=== PATIENT | female | born 1990 | race Caucasian/White ===

== ENCOUNTER 2022-08-20 09:02 | Outpatient (CLI) | payer BC, SELFPAY ==
[2022-08-20 10:11] LABS: Cholesterol* 151 mg/dL (90-199); Glucose* 87 mg/dL (60-115); Triglycerides* 38 mg/dL (40-149)
[2022-08-20 10:12] LABS: HDL Cholesterol* 63 mg/dL (>=50); LDL Cholesterol Calculated 80 mg/dL (<100)
== END 2022-08-20 09:03 | disposition home or self-care (01) ==
PROVIDERS: Visit Provider Registered Nurse
DX: Z13.6 Encounter for screening for cardiovascular disorders (principal); Z13.1 Encounter for screening for diabetes mellitus
CPT/HCPCS: 80061; 82947

== ENCOUNTER 2023-06-01 08:06 | Outpatient (CLI) | payer BC, SELFPAY ==
--- NOTE | 2023-06-01 08:15 | CRLHL7_ITS ---
For Patients: As a result of the Cures Act, medical imaging exams and procedure reports are released immediately into your electronic medical record. You may view this report before your referring provider. If you have questions, please contact your health care provider. INDICATION: First trimester scan, establish dates. COMPARISON: None. TECHNIQUE: Real-time lopez-scale imaging of the pelvis was performed. FINDINGS: Sonographic imaging demonstrates a single living intrauterine gestation. The embryo demonstrates a regular cardiac rate measuring 171 beats per minute. The embryo`s crown-rump length measurement of 2.1 cm corresponds to a gestational age of 8 weeks 5 days with a sonographic due date of 01/05/2023. There is a normal-appearing yolk sac. There are no gross abnormalities noted within the embryo at this early state of development. The gestational sac has a normal appearance. There is no evidence of a perigestational hemorrhage. The amount of fluid within the sac appears appropriate for gestational age. The cervix is closed. The myometrium appears normal. The ovaries are of normal size. Corpus luteal cyst right ovary. Trace pelvic free fluid noted. IMPRESSION: Single living intrauterine with sonographic gestational age 8 weeks 5 days and sonographic due date 01/05/2023. Dictated by Kavin Monge MD @ 06/01/2023 9:38:18 AM (Electronically Signed)
== END 2023-06-01 08:07 | disposition home or self-care (01) ==
LOC: US 08:06
PROVIDERS: Visit Provider Registered Nurse
DX: Z34.91 Encounter for supervision of normal pregnancy, unspecified, first trimester (principal); Z3A.08 8 weeks gestation of pregnancy
CPT/HCPCS: 76817; 86592; 86703; 86704; 86706; 86762; 86787; 86803; 86850; 86900; 86901; 87086; 87340; 87491; 87591

== ENCOUNTER 2023-06-01 09:16 | Outpatient (CLI) | payer BC, SELFPAY ==
[2023-06-01 17:35] LABS: Chlamydia DNA Amplified* NOT DETECTED (No Detected); GC DNA Amplified* NOT DETECTED (No Detected)
== END 2023-06-01 09:17 | disposition home or self-care (01) ==
PROVIDERS: Visit Provider Registered Nurse
DX: Z34.91 Encounter for supervision of normal pregnancy, unspecified, first trimester (principal); Z3A.08 8 weeks gestation of pregnancy
CPT/HCPCS: 86592; 86703; 86704; 86706; 86762; 86787; 86803; 86850; 86900; 86901; 87086; 87340; 87491; 87591

== ENCOUNTER 2023-08-24 08:37 | Outpatient (CLI) | payer BC, SELFPAY ==
--- NOTE | 2023-08-24 08:45 | CRLHL7_ITS ---
For Patients: As a result of the 21st Century Cures Act, medical imaging exams and procedure reports are released immediately into your electronic medical record. You may view this report before your referring provider. If you have questions, please contact your health care provider. OB ULTRASOUND INDICATION: anatomy scan. LMP: 04/01/2023. ELVIRA by LMP: 01/06/2024. GA: 20 w, 5 d. COMPARISON: 06/01/2023. FINDINGS: position: Vertex. Cervix: Visualized. Technique: Transabdominal. Length of closed cervix: 3.9 cm. Placenta/cord: Anterior. Technique: Transabdominal. Placenta tip to internal OS: 7.0 cm. Umbilical Cord: 3-vessel cord. Placenta insertion: Eccentric (2.7 cm from edge). Amniotic Fluid: 4.6 cm SDP SURVEY: Observed Structures Calvarium/Spine: Cerebellum: 2.1 cm, 21 w 0 d. Cisterna Magna: 2.1 mm. Nuchal Fold: 3.3 mm. Lateral Ventricle: 4.1 mm. CSP: Yes. Midline Falx: Yes. Choroid Plexus: Yes. Spine: Yes. Abdomen: Stomach: Yes. Abd Cord Insertion: Yes. Urinary Bladder: Yes. Kidneys: Yes. Diaphragm: Yes. Face: Nose/lips: Yes. Orbital view: Yes. Profile: Yes. Limbs: Upper Extremities: Yes. Lower Extremities: Yes. Hands: Yes. Feet: Yes. Vascular: Four-Chamber Heart: Yes. LVOT: Yes. RVOT: Yes. 3VV: Yes. 3VTV: Yes. BPD: 4.8 cm. 20 w 3 d, 34 percent. HC: 17.6 cm. 20 w 0 d, 15 percent. AC: 15.8 cm. 21 w 0 d, 51 percent. FL: 3.6 cm. 21 w 3 d, 66 percent. FL/AC: 22.78 percent. HC/AC Ratio: 1.11. Heart rate: 154 beats per minute. age by this US: 20 w 5 d. ELVIRA by this US: 01/06/2024. EFW: 393.06 g. Weight: 14 oz. Percentile by ELVIRA: 62 percent. IMPRESSION: 1. Measurements are consistent with dates. Good interval growth since the prior exam. 2. Normal anatomic survey. Duncan Pascual M.D. Body/Diagnostic Radiologist [email or web address] SP/Dictated by: Duncan Pascual MD @ 08/24/2023 11:42:00 AM (Electronically Signed)
== END 2023-08-24 08:38 | disposition home or self-care (01) ==
LOC: US 08:38
PROVIDERS: Visit Provider Advanced Practice Midwife
DX: Z34.92 Encounter for supervision of normal pregnancy, unspecified, second trimester (principal); Z3A.20 20 weeks gestation of pregnancy
CPT/HCPCS: 76805

== ENCOUNTER 2023-10-19 08:48 | Outpatient (CLI) | payer BC, SELFPAY | END 2023-10-19 08:49 | disposition home or self-care (01) | LOC: NFLDREF 10-21 06:04 | PROVIDERS: PCP Advanced Practice Midwife; Visit Provider Advanced Practice Midwife | DX: Z34.92 Encounter for supervision of normal pregnancy, unspecified, second trimester (principal) | CPT/HCPCS: 86592 ==

== ENCOUNTER 2023-12-14 08:56 | Outpatient (CLI) | payer BC, SELFPAY ==
[2023-12-15 14:15] LABS: Strep B DNA Probe Negative (Negative)
[2023-12-15 14:36] LABS: Strep B Susceptibility Needed? No
== END 2023-12-14 08:57 | disposition home or self-care (01) ==
LOC: NFLDREF 08:56
PROVIDERS: Visit Provider Advanced Practice Midwife
DX: Z34.03 Encounter for supervision of normal first pregnancy, third trimester (principal)
CPT/HCPCS: 87081; 87653

== ENCOUNTER 2024-01-12 21:13 | Inpatient (IN) | payer BC, SELFPAY ==
[2024-01-12] VITALS (27 sets, daily range): BP systolic 88–141; BP diastolic 54–87; PULSE 53–102; TEMP 36.5–36.6; O2SAT 92–100; BMI 28.9
--- NOTE | 2024-01-12 21:43 | P.LDBA_ITS ---
Subjective History of Present Illness Date Seen: 01/12/24 Narrative: Farhana is being admitted to Labor and Delivery for labor. She is a 33 year old at 40.6 weeks gestation. Her full history and physical was dictated by Toya Santa CNM on 12/21/23. Please see this for details. She has been lars most of the day and at about 1700 they became stronger and she called to speak with the birthing unit to discuss her symptoms. On arrival she is lars regularly and considering asking for pain medications or an epidural. At this time she is planning to try water therapy in the bathroom tub. Specific Issues/Plans G 1 P 0 H&P 12/21/23 by Toya Santa CNM : Henrique 1. Increased vascularity where placenta attaches to uterus per tech report. Not noted in radiology report. Flu: recommended. Declined Covid: Completed and boosted x2. Not current with booster. Recommended. Declines today. TDAP: 11/03/23 OB - Problem Based A/P Additional Plan (1) 40 weeks gestation of : Status: Acute (2) Distress from pain in labor: Status: Acute Plan Assessment:?? at 40.6 weeks gestation?? GBS negative? Patient is coping well with challenges of labor.?? Labor type: Spontaneous, Early labor? Category 1 FHR pattern.? complicated by: No OB problems. Plan:?? * ?Admit to L & D? * IV access: SL * Monitoring per policy: intermittent? * Candidate for analgesia of choice.? Planning to try water therapy for pain management, considering epidural * Expectant management at this time ? * Patient encouraged to reposition and ambulate to promote physiologic labor and . * Patient desires waterbirth as option undecided it she will use. Consent signed Hep C neg. * Anticipate ? Delivery/Labor/Induction Plan Plan: expectant management OB Exam Physical Exam Vital signs: Pulse BP Pulse Ox 59 L 132/85 92 01/12/24 20:48 01/12/24 20:48 01/12/24 21:04 Narrative: Vitals Reviewed Constitutional:? Alert and oriented x3 HEENT:? Normocephalic, atraumatic Neck:? Supple Lungs:? Clear to auscultation bilaterally Heart:? Regular rate and rhythm, no murmur, rub or gallop Abdomen:? Soft, nontender, and gravid. Vertex by Andrei's, confirmed with cervical exam. Extremities:? No edema or erythema Cervix: 3 cm/90%/-1 station/vertex per RN NST: 145 bpm/moderate variability/+accelerations/-decelerations/moderate contractions Detailed Labor and Delivery Exam Patient Gravid: Yes
[2024-01-12 22:15] LABS: Basophils Percent Auto 0.2 % (0.0-3.0); Eosinophils Percent Auto 0.7 % (0.0-7.0); Hematocrit 42.8 % (33.0-51.0); Hemoglobin* 14.7 gm/dL (12.0-16.0); Immature Granulocytes Pct Auto 0.3 %; Lymphocytes Percent Auto 11.8 % (20-44); Mean Corpuscular HGB Conc 34 gm/dL (32-36); Mean Corpuscular Hemoglobin 30 pg (26-34); Mean Corpuscular Volume 89 fL (80-100); Monocytes Percent Auto 5.5 % (0.0-11.0); Neutrophils Percent Auto 81.5 % (42.0-72.0); Platelet Count* 125 K/uL (140-440); RDW Coefficient of Variation % 11.8 % (11.5-15.5); Red Blood Count 4.83 m/uL (4.00-5.20); White Blood Count* 15.97 K/uL (4.50-11.00)
[2024-01-12] MEDS: LACTATED RINGERS 1000 ML 1,000 ML IV ×2 (22:21→23:15)
[2024-01-12 22:28] LABS: Slide Review Reflex No
[2024-01-12] MEDS: LIDOCAINE 2% (PF) 5 ML VIAL EPIDURAL (23:13)
[2024-01-12] MEDS: ROPIVACAINE 0.2% 100 ml 100 ML 12 MG EPIDURAL (23:15)
--- NOTE | 2024-01-12 23:27 | PM.ANBPRC ---
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 Lives in [place]. What is your current living situation?: I presently have a place to live Problems where you live: no known problems In the past 12 months, utilities in danger of being shut off: no In past 12 months, lack of transportation kept you from medical appts, meetings, work, or getting things needed for daily living: no In the past 12 mos, have been you worried that your food would run out before you had money to buy more?: never true In the past 12 mos, the food you bought just didn't last and you didn't have money to buy more?: never true Smoking Status: Never smoker How often does anyone, including family, friends and others, physically hurt you: never How often does anyone, including family, friends and others, insult or talk down to you: never How often does anyone, including family, friends and others, threaten you with harm: never How often does anyone, including family, friends and others, scream or curse at you: never Little interest or pleasure in doing things: not at all Feeling down, depressed, or hopeless: not at all Meds Home Medications and Allergies Home Medications ?Medication ?Instructions ?Recorded ?Confirmed ?Type loratadine 10 mg tablet (Claritin) 10 mg PO QDAY PRN 08/20/22 01/12/24 History acetaminophen 500 mg tablet 1,000 mg PO Q6H PRN 06/01/23 01/10/24 History (Tylenol Extra Strength) docosahexaenoic acid 200 mg mg PO 06/01/23 01/10/24 History capsule ( DHA) Allergies Allergy/AdvReac Type Severity Reaction Status Date / Time cats Allergy Intermediate itchy Uncoded 01/10/24 08:15 eyes, sneezing, SOB, mucous molds/dust Allergy Mild sneezing, Uncoded 01/10/24 08:15 runny nose dogs Allergy itchy Uncoded 01/10/24 08:15 eyes, SOB, sneezing, mucous Results Labs Labs: Laboratory Results - last 24 hr 01/12/24 21:43 WBC 15.97 H RBC 4.83 Hgb 14.7 Hct 42.8 MCV 89 MCH 30 MCHC 34 RDW Coeff of Den 11.8 Plt Count 125 L Neut % (Auto) 81.5 H Lymph % (Auto) 11.8 L Gillespie % (Auto) 5.5 Eos % (Auto) 0.7 Baso % (Auto) 0.2 Neut # (Auto) 13.00 H Lymph # (Auto) 1.90 Gillespie # (Auto) 0.90 Eos # (Auto) 0.10 Baso # (Auto) 0.00 Abs Immat Gran (auto) 0.00 Imm/Tot Granulo (auto) 0.3 Vital Signs Vital Signs: Last Vital Signs Temp 98 F 01/12/24 20:48 Pulse 96 01/12/24 23:25 BP 99/54 L 01/12/24 23:25 Pulse Ox 100 01/12/24 23:25 Weight: 78.9 kg Height: 165.1 cm Anesthesia Procedures Epidural Insertion Patient Location: OB Start Time: 22:50 Stop Time: 23:50 Start Date: 01/12/24 Stop Date: 01/12/24 Reason for Block: procedure for pain Patient Position: sitting Performed By: Mae Mirza Preanesthetic Checklist: IV checked, risks and benefits discussed, monitors and equipment checked, pre-op evaluation, timeout performed and anesthesia consent Prep: chlorhexidine gluconate Monitoring: blood pressure monitoring, continuous pulse oximetry and heart rate Approach: midline Vertebral Space: lumbar (1-5) Epidural Technique: STEPHEN saline Needle Type: Tuohy needle Injection Technique: continuous catheter (continuous catheter) Needle gauge: 17 Needle Length (cm): 10 cm Needle Insertion Depth (cm): 6 Catheter Gauge: 19 Catheter Type: multi-orifice Catheter at skin depth (cm): 15 Test Dose Result: negative and lidocaine 1.5% with epinephrine 1 to 200,000
[2024-01-12] MEDS: PHENYLEPHRINE 100 MCG/ML SYRINGE IVP ×2 (23:32→23:49)
[2024-01-13] VITALS (42 sets, daily range): BP systolic 99–140; BP diastolic 55–92; PULSE 53–127; RESP 16–18; TEMP 36.5–36.9; O2SAT 97–100
--- NOTE | 2024-01-13 00:30 | PM.OBPNL ---
Subjective Date Seen: 01/13/24 Narrative: ?Farhana is coping well with labor pain/contractions now with an epidural in place. ?Henrique is with her for support. ?She is comfortable and denies feeling any contractions now. Objective Exam: VSS, afebrile General Appearance:? Calm, cooperative. ?No acute distress. ? Psychiatric Exam: Alert and oriented, appropriate affect Abdomen: Gravid Ctx: ?Q 2-3 min apart. ? ?Moderate ? FHTs: ?Baseline: 135. ? ? Variability: moderate. ?Accels: +. ? ?Decels: ?-. SVE: 3/100/-1 Membranes: Intact ? Vital Signs: Last Vital Signs Temp 97.7 F 01/12/24 23:34 Pulse 69 01/13/24 00:24 BP 113/68 01/13/24 00:24 Pulse Ox 100 01/12/24 23:25 Plan Plan: Assessment:?? at 40.6 weeks gestation?? GBS neg Patient is coping well with challenges of labor.?? Labor type: Spontaneous, Early labor? Category 1 FHR pattern.? complicated by: No OB problems Plan:?? Expectant management at this time. Continue with routine intrapartum cares as ordered.?? Patient encouraged to move and change positions to promote physiologic labor and .?? Epidural infusing per anesthesia orders. Anticipate progress to NVD. ?
--- NOTE | 2024-01-13 03:50 | P.OBPN_ITS ---
Subjective Date Seen: 01/13/24 Narrative: ?Misti is coping well with labor pain/contractions. ?Henrique is with her for support. ?She would like to continue with her epidural for comfort and pain management.?She is feeling more pressure with contractions and nursing has noted some bloody show. Objective Exam: VSS, afebrile General Appearance:? Calm, cooperative. ?No acute distress. ? Psychiatric Exam: Alert and oriented, appropriate affect Abdomen: Gravid Ctx: ?Q 3-4 min apart. ? ? ?Strong FHTs: ?Baseline: 135. ? ? Variability: moderate. ?Accels: +. ? ?Decels: ?early. SVE: 9/100/-1 Membranes: ?AROM meconium stained Vital Signs: Last Vital Signs Temp 98.1 F 01/13/24 02:37 Pulse 92 01/13/24 03:26 BP 113/63 01/13/24 03:26 Pulse Ox 100 01/12/24 23:25 Assessment Assessment: active labor Station: -1 Amniotic Membrane Status: AROM Status: Category l [facility] Variability: Moderate (6-25) Plan Plan: Assessment:?? at 40.6 gestation?? GBS neg Patient is coping well with challenges of labor.?? Labor type: Spontaneous, Active labor? Category 1 FHR pattern.? complicated by: No OB problems Labor complicated by: Meconium stained fluid? Plan:?? Peds to attend for MSF Continue with routine intrapartum cares as ordered.?? Patient encouraged to move and change positions to promote physiologic labor and .?? Continue epidural for pain control per anesthesia orders Anticipate progress to NVD. ?
[2024-01-13] MEDS: OXYTOCIN 30 unit/500 ML in NS 30 UNIT/500 ML BAG 325 UNIT IVPB (06:22)
[2024-01-13] MEDS: miSOPROStoL 800 MCG/4 TABLET PR (06:25)
[2024-01-13] MEDS: LIDOCAINE 1 % PF 30 ML INJECTION (06:35)
--- NOTE | 2024-01-13 07:38 | W.PM.VAGDE_ITS ---
OB Procedure Vag Delivery Mother Details Mother Details: The patient is a 33 year-old, 1, Para 0, admitted on 01/12/24 at 40.6 Days gestation. : 1 Para: 1 Weeks Gestation: 41.0 Admission Date: 01/12/24 Additional Details Amniotic Membrane Status: AROM Amniotic Membrane Rupture Date: 01/13/24 Amniotic Membrane Rupture Time: 03:41 Amniotic Membrane Fluid Description: Meconium Stained and Brown Analgesia/Anesthesia Type: Epidural Waterbirth: No Pitcoin: Yes (for AMTSL) Intrapartal Events: None Labor Onset: 20:41 Complete: 05:16 Pushin:16 Heart: heart tones during second stage were continuously monitored. Category 2 moderate variability with variables. Delivery Details Delivery Date: 01/13/24 Delivery Time: 06:08 Route of delivery: Gender: Female Viability: Alive; Heart Rate Present Position at Delivery: OA Delivery Details: 33?y.o G1 now P1?at 41.0 weeks.? Misti labored at home most of the day and on arrival had made cervical change, she was 3/90/-1 on admission. She labored and progressed normally with an epidural for pain management. ? She became complete at 0516.??She pushed in right tilt and low fowlers positions effectively.? Spontaneous vaginal delivery at 0608 of?a viable? female infant.??Delivered in vertex OA position.??Shoulders delivered easily.?There cord was wrapped around the ankle, and the cord was short. Spontaneous cry noted.?? placed low on maternal abdomen.??Cord?was clamped and cut after a 5+ minute delay.??Nose and mouth were bulb suctioned.???There was a large amount of fluid behind the baby, 1000ml in the collection bag. ? Shoulder dystocia: no? Nuchal cord: no? Meconium stained?fluid: yes? Water : no? ? ? 8 at 1 minute and 9 at 5 minutes.? Weight is pending. ? Placenta delivered spontaneously and?complete?at 0618 with a?3 vessel?cord.?? Bleeding controlled with fundal massage,?pitocin?and Cytotec for AMTSL.? ? Mother and were stable after delivery.? ? Lacerations:? Deep 2nd degree,and Left labial laceration repaired with 3- 0?vicryl.? ? Bleeding?post delivery?was: moderate . ?The fundus was firm to palpation.? Blood loss: 300?mL.? Blood loss measurement type: QBL? ? ? Sponge,?lap?and needles counts are correct.? Mother and infant were stable after delivery.? 1 Minute Interval Total Score: 8 5 Minute Interval Total Score: 9 Additional Details Shoulder Dystocia: No Placenta Delivery Time: 06:18 Placental Delivery Description: Spontaneous Delivery repair: Vicryl Procedure Done: Global Blood Loss: 300 Laceration: Perineal - 2nd Degree (and left labial) Blood Loss Measurement Type: QBL Bakri Used: No Sponge/Need Count Correct: Yes Cord Vessel Description: 3 Vessels and Around Extremity (right ankle) Event Summary Status: Mother and were stable after delivery. Disposition: floor
[2024-01-13] MEDS: IBUPROFEN 600 MG TABLET PO (08:43)
[2024-01-13] MEDS: DOCUSATE SODIUM 100 MG CAPSULE PO (08:43)
[2024-01-13 09:05] LABS: Hematocrit 37.7 % (33.0-51.0); Hemoglobin* 12.6 gm/dL (12.0-16.0); Mean Corpuscular HGB Conc 33 gm/dL (32-36); Mean Corpuscular Hemoglobin 30 pg (26-34); Mean Corpuscular Volume 90 fL (80-100); Platelet Count* 133 K/uL (140-440); Red Blood Count 4.17 m/uL (4.00-5.20); White Blood Count* 20.97 K/uL (4.50-11.00)
[2024-01-13 09:11] LABS: Slide Review Reflex No
[2024-01-13 09:20] LABS: Alanine Aminotransferase* 49 U/L (4-35); Aspartate Amino Transferase* 35 U/L (12-35); Blood Urea Nitrogen* 10 mg/dL (5-24); Creatinine* 0.8 mg/dL (0.5-1.5); Est. Creatinine Clearance* 90.84; Estimated Glomerular Filt Rate 100 ml/min
--- NOTE | 2024-01-13 10:06 | PM.ANPOST ---
Post Anesthesia Note Post Anesthesia Note Patient seen: Inpatient Respiratory Status: adequate Cardiovascular Status: adequate Mental Status: baseline Pain: adequate Temp: baseline Anesthetic awareness: no Complications: none Follow care: none
[2024-01-14 00:15] VITALS: BP 117/75; PULSE 64; RESP 16; TEMP 37.1; O2SAT 97
[2024-01-14 03:09] VITALS: BP 119/85; PULSE 64; RESP 16; TEMP 36.4; O2SAT 97
[2024-01-14] MEDS: ACETAMINOPHEN 500 MG TABLET 1000 MG PO (07:16)
[2024-01-14 07:53] VITALS: BP 125/87; PULSE 66; RESP 18; TEMP 36.6; O2SAT 97
[2024-01-14] MEDS: DOCUSATE SODIUM 100 MG CAPSULE PO (07:55)
--- NOTE | 2024-01-14 08:57 | PM.OBPNVD1 ---
OB - PN:Subj Subjective Date Seen: 01/14/24 Patient comments OB post-: no complaints, pain well controlled, tolerating diet and flatus present [place] status: and doing well [place] feeding status: exclusively Narrative: Farhana feels well.? Her pain is well controlled with current medications.? She has no new complaints.? Urinary output is adequate and she is voiding without difficulty.? Has a good appetite, is tolerating a general diet, is passing flatus, and has not had a bowel movement.? Has small amount of rubra lochia.? She is ambulating well.?She is but baby is struggling with latching and has not had a good latch yet. She is hand expressing and spoon feeding. She is interested in going home today but I encouraged her to consider staying tonight to get extra assistance. She is considering and will decide this evening. ALT was elevated but blood pressures have remained normotensive since labs were drawn. Will continue to monitor blood pressures. OB - PN: Obj Exam Physical Exam: Vital signs: Temp Pulse Resp BP Pulse Ox O2 Del Method 97.8 F 66 18 125/87 97 Room Air 01/14/24 07:53 01/14/24 07:53 01/14/24 07:53 01/14/24 07:53 01/14/24 07:53 01/14/24 07:53 Narrative: GENERAL APPEARANCE:? normal affect, alert, no distress? MOOD:? appropriate? CHEST:? clear to auscultation and percussion? HEART:? regular rate and rhythm? ABDOMEN:? soft, non-tender the uterine fundus is U/2 and is appropriate for the stage of recovery.? PERINEUM:? mild edema of the perineum, there is a 2nd degree laceration that is healing well.? EXTREMITIES:? normal and no edema? OB - PN: Obj Data Labs Labs: Laboratory Results - last 24 hr 01/13/24 08:59 WBC 20.97 H RBC 4.17 Hgb 12.6 Hct 37.7 MCV 90 MCH 30 MCHC 33 Plt Count 133 L BUN 10 Creatinine 0.8 Estimated Creat Clear 90.84 Estimated GFR 100 AST 35 ALT 49 H OB - PN: A/P Delivery Assessment and Plan (1) Lactating mother: Status: Acute (2) care following vaginal delivery: Status: Acute Plan day: 1 Plan: routine care Comments: Monitor blood pressures. Consider repeat labs if elevated. Anticipate discharge home this evening of tomorrow morning per patient preferance.
[2024-01-14 16:30] VITALS: BP 125/80; PULSE 73; RESP 15; TEMP 36.5; O2SAT 97
[2024-01-14 22:26] LABS: Rapid Plasma Reagin (RPR) Non Reactive (Non Reactive)
[2024-01-15 01:00] VITALS: BP 113/75; PULSE 73; RESP 16; TEMP 36.8
--- NOTE | 2024-01-15 07:47 | PM.OBDSVD1 ---
DS: Providers Provider Date Seen: 01/15/24 Date of admission: 01/12/24 21:13 Primary care physician: Not a Local Provider Admitting Clinician: Miguelina Abdalla CNM Attending Physician on discharge: Miguelina Abdalla CNM Date of Discharge: 01/15/24 DS: Diagnosis Discharge Diagnosis (1) care following vaginal delivery: Status: Acute (2) Lactating mother: Status: Acute (3) Preeclampsia: Status: Acute Exam Narrative: Exam Narrative: GENERAL APPEARANCE:? normal affect, alert, no distress? MOOD:? appropriate? CHEST:? clear to auscultation and percussion? HEART:? regular rate and rhythm? ABDOMEN:? soft, non-tender the uterine fundus is U/2 and is appropriate for the stage of recovery.? PERINEUM:? mild edema of the perineum, there is a 2nd degree laceration that is healing well.? EXTREMITIES:? normal and no edema? Const: Vital Signs, click to edit/add: Vital Signs - 24 hr 01/14/24 07:53 01/14/24 16:30 01/15/24 01:00 Temperature 97.8 F 97.7 F 98.3 F Pulse Rate [Pulse Oximeter] 66 73 73 Respiratory Rate 18 15 16 Blood Pressure [Ri ght Arm] 125/87 125/80 113/75 Pulse Oximetry 97 97 Oxygen Delivery Me thod Room Air Room Air Room Air Documenting provider has reviewed patient's vital signs: yes OB - DS: Summary Hospital Course Hospital Course: Farhana is a 33 year old G 1 P 1 at 41.0 weeks gestation that was admitted to the Center on 01/12/24 for active labor. She had an uncomplicated vaginal delivery. She delivered a viable female . She is breast feeding which is going much better overnight and today. the patient has done well. Her pain is well controlled with current medications.? She has no new complaints.? Urinary output is adequate and she is voiding without difficulty.? Has a good appetite, is tolerating a general diet, is passing flatus, and has had a small bowel movement.? Has scant amount of rubra lochia.? She is ambulating well. Her blood pressures are slightly elevated for what she was in and an elevated ALT so will repeat labs before discharge. She declines an prescription for ibuprofen going home as she has not taken any pain medications since yesterday morning. Encouraged her to take OTC medications PRN. She is unsure what she is planning for contraception but is thinking NFP. Peripartum Data Infant delivery method: Vaginal Laceration description: Perineal - 2nd Degree Episiotomy description: None complications: none [place] Infant Gender: Female Infant Discharge Plan: Home Status at Discharge Functional status at discharge: independent ambulation Overall status at discharge: patient is progressing back to baseline Time Spent with Patient Time attestation: Total time spent providing and/or coordinating discharge services: Discharge Plan Discharge Disposition: Home, Self-Care Date of Admission: 01/12/24 21:13 Primary Care Provider: Provider,Not a Local Condition: Stable Anticipated Discharge Date/Time: 01/15/24 10:00 Discharge Medications: New docusate sodium 100 mg Capsule 100 mg PO DAILY Qty: 60 0RF Rx Instructions: Take 1-2 tablets daily as needed for constipation. Continued loratadine [Claritin] 10 mg tablet 10 mg PO QDAY PRN DHA 200 mg capsule 200 mg PO DAILY acetaminophen [Tylenol Extra Strength] 500 mg tablet 1,000 mg PO Q6H PRN No Action (DME) breast pump Device See Rx Instructions .Route Qty: 1 0RF Rx Instructions: As directed Discharge Orders: Discharge Order (Routine); Ordered 01/15/24 Ordered By: Olesya Santa Patient Education: OB Vaginal/Breast Feeding Additional Instructions: Discharge instructions were reviewed with the patient including signs and symptoms of infection and home going medications.? Lifting Restrictions: 20 pounds for 6? weeks? ?? Do not drive while taking narcotic pain meds.? Off Work or School for 6 weeks.? ?? Symptoms to report to doctor:? -Bleeding that saturates more than one pad per hour? -Passing clots larger than the size of a golf ball? -Pain not relieved by prescribed medication? -Fever above 100.4 degrees Fahrenheit? -A foul vaginal odor? -Difficulty in emotions, mood and functions? -Thoughts of hurting yourself and/or ? -Painful, reddened area in your breast? -Any drainage, redness or tenderness in your IV/epidural site? -Severe headache that doesn't improve after taking medications? -Changes in vision, including temporary loss of vision, blurred vision, and/or light sensitivity? -Upper abdominal pain (usually under ribs on the right side)? -Decrease in urination or painful, frequent urinating? -Chest pain? -Shortness of breath? -Tenderness or pain with redness and/swelling in the calf(s) of your leg? ?? Follow Up in clinic in 2 and 6 weeks.? ?? consultation services are available to all mothers and babies for the first year after delivery.? To make an appointment, please call [phone].? Activity Level: Activity as Tolerated Discharge Diet: Regular Follow Up Appointments: [facility] [Provider Group] Forms: MyHealth Info Instructions
[2024-01-15 07:51] VITALS: BP 126/88; PULSE 57; RESP 16; O2SAT 97
[2024-01-15 08:22] LABS: Hematocrit 36.3 % (33.0-51.0); Hemoglobin* 11.9 gm/dL (12.0-16.0); Mean Corpuscular HGB Conc 33 gm/dL (32-36); Mean Corpuscular Hemoglobin 30 pg (26-34); Mean Corpuscular Volume 93 fL (80-100); Platelet Count* 143 K/uL (140-440); Red Blood Count 3.91 m/uL (4.00-5.20); White Blood Count* 10.27 K/uL (4.50-11.00)
[2024-01-15 08:27] LABS: Slide Review Reflex No
[2024-01-15 08:39] LABS: Alanine Aminotransferase* 21 U/L (4-35); Aspartate Amino Transferase* 39 U/L (12-35); Blood Urea Nitrogen* 9 mg/dL (5-24); Creatinine* 0.8 mg/dL (0.5-1.5); Est. Creatinine Clearance* 90.84; Estimated Glomerular Filt Rate 100 ml/min
[2024-01-15] MEDS: DOCUSATE SODIUM 100 MG CAPSULE PO (09:10)
[2024-01-15] MEDS: ACETAMINOPHEN 500 MG TABLET 1000 MG PO (09:12)
--- NOTE | 2024-01-15 13:01 | PC.NURSE ---
Nursing Care Hours: [id number] Pt this shift calm and cooperative, alert and oriented. No c/o pain, chest tightness, or headache. VSS. Pt drinking and voiding sufficiently. Responsive and appropriate with infant. No IV. Instructions went over with pt and spouse, all questions and concerns addressed.
== END 2024-01-15 12:35 | disposition home or self-care (01) | DRG 560 ==
LOC: OB OUT 21:14 → OB 21:14
PROVIDERS: Advanced Practice Midwife; Admitting Provider Advanced Practice Midwife; Visit Provider Advanced Practice Midwife
DX: O77.0 Labor and delivery complicated by meconium in amniotic fluid (principal); O70.1 Second degree perineal laceration during delivery; O14.94 Unspecified pre-eclampsia, complicating childbirth; Z37.0 Single live birth; Z3A.40 40 weeks gestation of pregnancy
CPT/HCPCS: 01967; 36415; 82565; 84450; 84460; 84520; 85025; 85027; 86592; 86850; 86900; 86901; G0463; A9270; J2001; J2371; J2795; J7120

== ENCOUNTER 2024-08-10 10:30 | Outpatient (RCR) | payer BC, SELFPAY | END 2024-11-26 15:46 | disposition home or self-care (01) | PROVIDERS: Visit Provider Physician Assistant | DX: N81.89 Other female genital prolapse (principal); N39.46 Mixed incontinence; R27.8 Other lack of coordination; Z51.89 Encounter for other specified aftercare | CPT/HCPCS: 97110; 97112; 97140; 97161; 97535 ==

== ENCOUNTER 2024-08-23 11:15 | Outpatient (CLI) | payer BC, SELFPAY ==
--- NOTE | 2024-08-23 11:30 | CRLHL7_ITS ---
For Patients: As a result of the Century Cures Act, medical imaging exams and procedure reports are released immediately into your electronic medical record. You may view this report before your referring provider. If you have questions, please contact your health care provider. INDICATION: First trimester dating and viability. TECHNIQUE: Ultrasound OB pelvis transabdominal and transvaginal. Real-time lopez-scale imaging of the pelvis was performed. COMPARISON: None. FINDINGS: Intrauterine gestation: Single. heart activity (bpm): 176. Surprise-rump length: 3.1 cm. Estimated ultrasound age: 10 weeks 0 days. ELVIRA by ultrasound: March 21, 2025. Yolk sac: Normal. Perigestational hemorrhage: Small measuring 25 x 11 x 11 mm. Ovaries and adnexa: Unremarkable. Suspicious pelvic fluid collections: None. IMPRESSION: Single viable intrauterine . Small subchorionic hemorrhage present. Otherwise no abnormality evident. Dictated by Min Stinson MD @ 08/24/2024 3:58:42 AM (Electronically Signed)
== END 2024-08-23 11:16 | disposition home or self-care (01) ==
LOC: US 11:16
PROVIDERS: Visit Provider Advanced Practice Midwife
DX: Z34.91 Encounter for supervision of normal pregnancy, unspecified, first trimester (principal); O20.9 Hemorrhage in early pregnancy, unspecified; Z3A.10 10 weeks gestation of pregnancy
CPT/HCPCS: 76817; 83021; 86592; 86703; 86704; 86706; 86762; 86787; 86803; 86850; 87086; 87340

== ENCOUNTER 2024-09-19 10:00 | Outpatient (CLI) | payer BC, SELFPAY | END 2024-09-19 10:01 | disposition home or self-care (01) | LOC: NFLDREF 09-24 09:24 | PROVIDERS: Visit Provider Advanced Practice Midwife | DX: O09.292 Supervision of pregnancy with other poor reproductive or obstetric history, second trimester (principal); Z3A.13 13 weeks gestation of pregnancy | CPT/HCPCS: 82565; 82570; 84156; 84450; 84460; 84520; 84550 ==

== ENCOUNTER 2024-10-22 09:11 | Outpatient (CLI) | payer BC, SELFPAY | END 2024-10-22 09:12 | disposition home or self-care (01) | LOC: NFLDREF 10-23 06:39 | PROVIDERS: Visit Provider Advanced Practice Midwife | DX: Z34.82 Encounter for supervision of other normal pregnancy, second trimester (principal) | CPT/HCPCS: 82570; 84156 ==

== ENCOUNTER 2024-11-20 12:05 | Outpatient (CLI) | payer BC, SELFPAY ==
--- NOTE | 2024-11-20 12:15 | CRLHL7_ITS ---
For Patients: As a result of the 21st Century Cures Act, medical imaging exams and procedure reports are released immediately into your electronic medical record. You may view this report before your referring provider. If you have questions, please contact your health care provider. OB ULTRASOUND ANATOMY SURVEY LMP: 06/17/2024. ELVIRA by LMP: 03/24/25. GA: 22 w, 2 d. INDICATION: Supervision of normal . TECHNIQUE: Real time lopez scale imaging of the fetus was performed. Evaluate anatomy. Transabdominal. position: Vertex, transverse, multiple positions. Head to maternal left. Cervix: Visualized. Technique: Transabdominal. Length of closed cervix: 5.2 cm. Placenta/cord: Anterior. Technique: Transabdominal. Placenta tip to internal OS: 5.0 cm. Umbilical Cord: 3-vessel cord. Placenta insertion: Central. Amniotic Fluid: 4.3 cm SDP (greater than/equal to: 2- less than 8 cm). SURVEY: Observed Structures. Calvarium/Spine: Cerebellum: 2.4 cm, 23 w 5 d. Cisterna Magna: 3.3 mm. Nuchal Fold: 4.1 mm. Lateral Ventricle: 4.9 mm. CSP: Yes. Midline Falx: Yes. Choroid Plexus: Yes. Spine: Yes. Abdomen: Stomach: Yes. Abd Cord Insertion: Yes. Urinary Bladder: Yes. Kidneys: Yes. Diaphragm: Yes. Face: Nose/lips: Yes. Orbital view: Yes. Profile: Yes. Limbs: Upper Extremities: Yes. Lower Extremities: Yes. Hands: Yes. Feet: Yes. Vascular: 4-Chamber Heart: Yes. LVOT: Yes. RVOT: Yes. 3VV: Yes. 3VTV: Yes. BPD: 5.1 cm. 21 w, 2 d, 13 percent. HC: 19.3 cm. 21 w, 4 d, 12 percent. AC: 17.2 cm. 22 w, 1 d, 37 percent. FL: 4.1 cm. 23 w, 2 d, 73 percent. FL/AC ratio: 23.88 percent. HC/AC ratio: 1.12. heart rate: 161 bpm. age by this US: 22 w, 3 d. ELVIRA by this US: 03/23/2025. EFW: 507.79 g. Weight: 1 lbs, 2 oz. Percentile by ELVIRA: 54 percent. IMPRESSION: 1. Concordance of clinical and sonographic dating. 2. Normal anatomic survey. Kavin Monge M.D. Diagnostic Radiologist [email or web address] SP/Dictated by: Kavin Monge MD @ 11/20/2024 3:24:00 PM (Electronically Signed)
== END 2024-11-20 12:06 | disposition home or self-care (01) ==
LOC: US 12:05
PROVIDERS: Visit Provider Advanced Practice Midwife
DX: Z34.92 Encounter for supervision of normal pregnancy, unspecified, second trimester (principal); Z3A.22 22 weeks gestation of pregnancy
CPT/HCPCS: 76805

== ENCOUNTER 2025-01-08 09:01 | Outpatient (CLI) | payer BC, SELFPAY | END 2025-01-08 09:02 | disposition home or self-care (01) | LOC: NFLDREF 01-10 09:51 | PROVIDERS: PCP Registered Nurse; Visit Provider Advanced Practice Midwife | DX: Z34.83 Encounter for supervision of other normal pregnancy, third trimester (principal) | CPT/HCPCS: 86592 ==

== ENCOUNTER 2025-02-26 09:35 | Outpatient (CLI) | payer BC, SELFPAY | END 2025-02-26 09:36 | disposition home or self-care (01) | LOC: NFLDREF 02-28 13:53 | PROVIDERS: Referring Provider Registered Nurse; Visit Provider Advanced Practice Midwife | DX: Z34.83 Encounter for supervision of other normal pregnancy, third trimester (principal) | CPT/HCPCS: 87081; 87653 ==

== ENCOUNTER 2025-03-27 20:23 | Inpatient (IN) | payer BC, SELFPAY ==
[2025-03-27] VITALS (34 sets, daily range): BP systolic 106–138; BP diastolic 57–85; PULSE 63–127; RESP 16–20; TEMP 36.5–37.2; O2SAT 94–100; BMI 28.8
--- NOTE | 2025-03-27 20:12 | W.PM.LDBA ---
Subjective History of Present Illness Date Seen: 03/27/25 Narrative: Patient is being admitted to Labor and Delivery for spontaneous onset of labor. She is a 34 year old at 40 2/7 weeks gestation. Her full history and physical was dictated by Vahe Powell CNM on 03/05/2025. Please see this for details. Specific Issues/Plans : Henrique Daughter Agustina. Unknown gender. H&P Completed 03/05/2025 by GRETCHEN Hopkins # Closely spaced pregnancies, last delivery 01/22 # HX preeclampsia. PreE labs done 09/19-WNL 24 urine: 0.11 recommended baby ASA # Depression (therapy referral placed at [facility]) COVID: Flu: TDAP: 01/29/25 RSV: N/A Mental Health: 01/29/25 OB - Problem Based A/P Additional Plan (1) Supervision of other normal : Status: Acute (2) Short interval between pregnancies complicating , antepartum: Status: Acute (3) History of pre-eclampsia in prior , currently : Status: Acute Plan ASSESSMENT:?? 34 at 40 3/7 weeks gestation?? complicated by:??hx preeclampsia, taking baby ASA, hx depression, closely spaced pregnancies Labor type:Spontaneous, Active labor?? Category 1 FHR pattern.??? Labor complicated by: none?? GBS negative? PLAN:?? 1. Routine intrapartum cares as ordered. Continue with expectant management?? 2. Monitoring per policy, intermittent?until epidural placement 3. Planning medicated . Candidate for analgesia of choice.??Desires epidural lorri.? 4. Patient encouraged to reposition and ambulate to promote physiologic labor and .?? 5. Planning expectant management of the 3rd stage? 6. Anticipate ? OB Exam Physical Exam Vital signs: Temp Pulse Resp BP Pulse Ox 97.7 F 75 16 121/85 98 03/27/25 19:29 03/27/25 19:29 03/27/25 19:29 03/27/25 19:29 03/27/25 19:31 Narrative: Vitals Reviewed Constitutional:? Alert and oriented x3 HEENT:? Normocephalic, atraumatic Neck:? Supple Lungs:? Clear to auscultation bilaterally Heart:? Regular rate and rhythm, no murmur, rub or gallop Abdomen:? Soft, nontender, and gravid. Vertex by Andrei's, confirmed with cervical exam. Extremities:? No edema or erythema Cervix: 4-5 cm/90%/-1 station/vertex with palpable sutures NST: 150 bpm/moderate variability/accelerations present/decelerations absent/contractions q 4 min
[2025-03-27] MEDS: LACTATED RINGERS 1000 ML 1,000 ML IV ×2 (20:56→22:20)
[2025-03-27 20:59] LABS: Hematocrit 40.9 % (33.0-51.0); Hemoglobin* 14.0 gm/dL (12.0-16.0); Immature Granulocytes Pct Auto 0.4 %; Lymphocytes Absolute Auto 2.70 K/uL (0.90-2.90); Mean Corpuscular HGB Conc 34 gm/dL (32-36); Mean Corpuscular Hemoglobin 31 pg (26-34); Mean Corpuscular Volume 90 fL (80-100); RDW Coefficient of Variation % 12.0 % (11.5-15.5); Red Blood Count 4.54 m/uL (4.00-5.20); White Blood Count* 16.29 K/uL (4.50-11.00)
[2025-03-27 21:09] LABS: Immature Granulocytes Abs Auto 0.10 K/uL (0.00-0.30); Slide Review Reflex No
[2025-03-27] MEDS: ROPIVACAINE 0.2 % PF 10 ML INJ 20 MG EPIDURAL (21:36)
[2025-03-27] MEDS: ROPIVACAINE 0.2% 100 ml 100 ML 12 MG EPIDURAL (21:36)
--- NOTE | 2025-03-27 21:46 | PM.ANBPRC ---
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 [employer] Partner: , Henrique Lives with: With Henrique and Daughter Agustina Pets: None Abuse: None Special Diet: None Ok with a blood transfusion: yes Culture or latter-day beliefs: [employer]aritan RISK FACTORS Exercise Times/wk: 2-3X, 20-30 min running or weights, yoga. Depression/Anxiety: Depression, Feelings of crumbling and that she can't get out at times. Voices feeling of being trapped in motherhood. Happens once every 2 weeks and has been occurring for a few months. Wishes to start therapy. Declines medications at this time. Encouraged to reach out sooner if worsening. LUIS ARMANDO: 4 PHQ 9: 5 Seat Belt Use: Routinely Smoking: Alcohol/day: Denies while Caffeine: Some days Drug Use: Denies Chicken Pox: Yes as a child MRSA: Denies What is your current living situation?: I presently have a place to live Problems where you live: no known problems In the past 12 months, utilities in danger of being shut off: no In past 12 months, lack of transportation kept you from medical appts, meetings, work, or getting things needed for daily living: no In the past 12 mos, have been you worried that your food would run out before you had money to buy more?: never true In the past 12 mos, the food you bought just didn't last and you didn't have money to buy more?: never true Smoking Status: Never smoker How often does anyone, including family, friends and others, physically hurt you: never How often does anyone, including family, friends and others, insult or talk down to you: never How often does anyone, including family, friends and others, threaten you with harm: never How often does anyone, including family, friends and others, scream or curse at you: never Meds Home Medications and Allergies Home Medications ?Medication ?Instructions ?Recorded ?Confirmed ?Type docosahexaenoic acid 200 mg 200 mg PO DAILY 06/01/23 03/27/25 History capsule ( DHA) breast pump #1 ea 10/14/23 03/27/25 Rx acetaminophen 500 mg oral powder 500 mg PO Q6H PRN 08/23/24 03/27/25 History packet (Tylenol Extra Strength) aspirin 81 mg tablet,delayed 81 mg PO QDAY 11/20/24 03/27/25 History release calcium carbonate (Tums) 200 mg PO BID 02/12/25 03/27/25 History famotidine 20 mg tablet (Pepcid) 20 mg PO QDAY 03/05/25 03/27/25 History Allergies Allergy/AdvReac Type Severity Reaction Status Date / Time cat dander Allergy Intermediate Watery Eye Verified 03/27/25 09:33 dog dander Allergy Intermediate Watery Eye Verified 03/27/25 09:33 molds/dust Allergy Mild sneezing, Uncoded 03/27/25 09:33 runny nose Results Labs Labs: Laboratory Results - last 24 hr 03/27/25 20:40 WBC 16.29 H RBC 4.54 Hgb 14.0 Hct 40.9 MCV 90 MCH 31 MCHC 34 RDW Coeff of Den 12.0 Plt Count 164 Neut % (Auto) 75.6 H Lymph % (Auto) 16.6 L [place] % (Auto) 6.1 Eos % (Auto) 1.2 Baso % (Auto) 0.1 Neut # (Auto) 12.30 H Lymph # (Auto) 2.70 [place] # (Auto) 1.00 H Eos # (Auto) 0.20 Baso # (Auto) 0.00 Abs Immat Gran (auto) 0.10 Imm/Tot Granulo (auto) 0.4 Vital Signs Vital Signs: Last Vital Signs Temp 97.7 F 03/27/25 19:29 Pulse 127 H 03/27/25 21:39 Resp 16 03/27/25 19:29 BP 112/58 L 03/27/25 21:39 Pulse Ox 100 03/27/25 21:45 Weight: 78.744 kg Height: 165.1 cm Anesthesia Procedures Epidural Insertion Patient Location: OB Start Time: 20:45 Stop Time: 21:47 Start Date: 03/27/25 Stop Date: 03/27/25 Reason for Block: procedure for pain Patient Position: sitting Performed By: Erwin Pretty Preanesthetic Checklist: IV checked, risks and benefits discussed, surgical consent, monitors and equipment checked, pre-op evaluation, timeout performed and anesthesia consent Prep: chlorhexidine gluconate Monitoring: blood pressure monitoring, continuous pulse oximetry and heart rate Approach: midline Vertebral Space: lumbar (1-5) Epidural Technique: STEPHEN air Needle Type: Tuohy needle Injection Technique: continuous catheter Needle gauge: 17 Needle Length (cm): 10 cm Needle Insertion Depth (cm): 6 Catheter Gauge: 19 Catheter Type: multi-orifice Catheter at skin depth (cm): 13 Test Dose Result: negative and lidocaine 1.5% with epinephrine 1 to 200,000
[2025-03-27] MEDS: LIDOCAINE 2% (PF) 5 ML VIAL EPIDURAL (22:21)
[2025-03-27] MEDS: OXYTOCIN 30 unit/500 ML in NS 30 UNIT/500 ML BAG 300 UNIT IVPB (23:07)
[2025-03-27] MEDS: METHYLERGONOVINE MALEATE 0.2 MG/ML INJ IM (23:13)
[2025-03-27] MEDS: TRANEXAMIC ACID 100 MG/ML INJ 1000 MG IV (23:47)
[2025-03-28] VITALS (21 sets, daily range): BP systolic 99–120; BP diastolic 55–78; PULSE 64–94; RESP 16; TEMP 36.3–36.9; O2SAT 96–100
[2025-03-28 00:24] LABS: Hematocrit 35.1 % (33.0-51.0); Hemoglobin* 12.0 gm/dL (12.0-16.0); Immature Granulocytes Pct Auto 0.3 %; Mean Corpuscular HGB Conc 34 gm/dL (32-36); Mean Corpuscular Hemoglobin 31 pg (26-34); Mean Corpuscular Volume 91 fL (80-100); RDW Coefficient of Variation % 12.0 % (11.5-15.5); Red Blood Count 3.87 m/uL (4.00-5.20); White Blood Count* 18.72 K/uL (4.50-11.00)
[2025-03-28 00:29] LABS: Immature Granulocytes Abs Auto 0.10 K/uL (0.00-0.30); Lymphocytes Absolute Auto 1.60 K/uL (0.90-2.90); Slide Review Reflex No
--- NOTE | 2025-03-28 00:44 | W.PM.OBVAGDE ---
OB Procedure Vag Delivery Mother Details Mother Details: The patient is a 34 year-old, 2, Para 1, admitted on 03/27/25 at 40 3/7 Days gestation. Admission Date: 03/28/25 Additional Details Amniotic Membrane Status: SROM Amniotic Membrane Rupture Date: 03/27/25 Amniotic Membrane Rupture Time: 21:57 Amniotic Membrane Fluid Description: Clear Analgesia/Anesthesia Type: Epidural Waterbirth: No Pitcoin: No Intrapartal Events: None Labor Onset: 19:15 Complete: 22:42 Pushin:46 Heart: heart tones during second stage were cat 2 with variables alternating with earlys for a bit. Accelerations present with descent to +3 station with moderate variabilllity Delivery Details Delivery Date: 03/27/25 Delivery Time: 22:58 Route of delivery: Infant Gender: Female Infant Viability: Alive; Heart Rate Present Position at Delivery: OA Delivery Details: Patient was admitted for active labor and progressed quickly. SROM noted at 2157 with clear fluid. Patient was complete at 2242 and pushing at 2246. of a viable female at 2258 in OA with left compound hand. Vertex delivered OA. Double tight nuchal cord that was too tight to slip. Baby was carefully somersaulted through then the cord was unwond. No shoulder dystocia. Body delivered easily and without incident. Infant passed to mothers abdomen with a vigorous cry. Cord was clamped and cut at > 5 minutes. APGARS were 8 at one minute and 9 at five minutes respectively. Intact placenta with a 3 vessel cord delivered spontaneously at 2303. Fundus firm. 2nd degree identified and repaired in typical fashion. After quick repair with figure of 8, vaginal bleeding noted with fundal pressure and intermittent mild atony treated with pitocin. Even after fundus firmed more vaginal gushes noted. Suspected a cervical lac. Bleeding identified and straights and rings applied to stop the bleeding. Dr Mathis called to assist with repair. QBL [address] Mathis took over care. Total QBL 1558 after difficult cervical repair finished. Please see her note. Mother and baby stable; mother plans to breastfeed. Infant weight pending.? 1 Minute Interval Total Score: 8 5 Minute Interval Total Score: 9 Additional Details Shoulder Dystocia: No Placenta Delivery Time: 23:03 Placental Delivery Description: Spontaneous Delivery repair: Vicryl (3-0 fofr small 2nd degree mL) Procedure Done: Global Blood Loss: 1,558 (Total) Laceration: Perineal - 2nd Degree (Cervical laceration repaired by Dr Mathis) Episiotomy Description: None Blood Loss Measurement Type: QBL Bakri Used: No Sponge/Need Count Correct: Yes Cord Vessel Description: 3 Vessels and Nuchal Cord (x2, tight summersaulted through without complication, left compound hand) Event Summary Status: Mother and infant were stable after delivery. Disposition: floor
[2025-03-28 00:47] LABS: INR 0.92 (0.91-1.10); Prothrombin Time 13.1 Seconds
--- NOTE | 2025-03-28 01:05 | PM.OBCN1 ---
OB - CN: HPI Date of Consult Time Seen by Provider: 01:05 Date Seen: 03/28/25 Patient: [facility] Patient Consult date: 03/28/25 Requesting Physician: Areli Zhong CNM Primary Care Provider: Not a Local Provider Consult Narrative Narrative: The patient is a 34 year old G 2 P 2 at 40 weeks gestation that was admitted to the [facility] on 03/27/25 for spontaneous onset of labor. She had a normal spontaneous vaginal delivery, complicated by suspected cervical laceration. I was consulted at 2315 by Robi Zhong CNM and presented to the bedside urgently. On arrival, total QBL was approximately 580 mL. Patient had IV Pitocin ongoing and had received IM Methergine x1. Clamps have been placed on cervical laceration to aid with bleeding control. I started with a pelvic exam. There was an apparent left cervical laceration, at approximately the 4 o'clock position tagged with clamps by Robi. Ring forceps were requested, where the cervix was run in its entirety. The anterior margin of the cervix was noted to be disrupted, until approximately 3 o'clock where it was friable and disrupted into anterior/posterior planes as it approximated the 4 o'clock laceration. The laceration itself was noted to extend proximally and posterior, 4 cm in length total. OR crew was requested, while repair was attempted at the bedside. Weighted speculum was inserted, margins of the cervical laceration were grasped with ring forceps. Starting at the apex, the cervical laceration was repaired in a running locking fashion working proximal to distal and tied at the midpoint of the laceration repair. Slight oozing was noted, where IV TXA was requested and administered. A second stitch was applied in a running/locking fashion starting at the apex, where care was made to incorporate both planes of the anterior cervical margins, until the entire length of the cervical laceration was reapproximated. Stat CBC and coags were requested and drawn. Friability was noted throughout. Intermittent mild atony was noted, improved with bimanual massage. On reinspection, the laceration was noted to be intact and hemostatic. Scant bleeding was noted from uterine cavity. The cervical serosa posteriorly at about 6 o'clock was noted to be disrupted and oozing, where a 2-0 vicryl was utilized to reapproximate serosal edges in a running/locking fashion. The entirety of the cervix was run and noted to be intact. Excellent hemostasis was noted throughout. OR crew was called off. The small 2nd degree laceration was noted to be slightly disrupted from trauma with a weighted speculum. Second-degree laceration repair performed in the usual fashion, with 2 0 Vicryl. Excellent hemostasis and tissue approximation was noted. On deeper inspection, the cervix again appeared hemostatic. A vaginal packing was applied focusing on the posterior aspect of the cervix and site of the laceration repair. 3 inch segment was left externally to aid with identification and removal, requested this retained object be documented in chart. Total QBL 1558mL. Requested type and cross for 2 units pRBCs. No immediate plan for transfusion at this time. Hemoglobin 12.0 (from 14.0), Platelets 168, INR 0.92, APTT 25, fibrinogen 380. Plan to maintain vaginal packing x6 hours. Diligent VS and symptomatic monitoring ongoing. Repeat hemoglobin in the AM. All questions answered, debrief completed. Care to be resuemd by Robi Zhong CNM. Ob consultation available with any acute questions/concerns. History History 2 Elective abortions Para 2 Spontaneous abortions Hx # Term Pregnancies 1 Ectopic pregnancies Hx # Pregnancies Multiple births Number of Living Children 1 Past Pregnancies Del. Date GA/Weeks Outcome Route wt Inf Gender Labor Lgth Anesthesia Location Provider Compli 01/13/24 41 live - full term 7 lb 8 oz Female 20 epidural [place] preeclampsia Labs GBS status: negative OB Labs: Lab Assessment Start: 03/27/25 20:25 Freq: ONCE Status: Active Protocol: PC.OBGBS Activity Type Activity Date Activity User E-sign Co-sign Detail Recorded Client Recorded Date Recorded By Document 03/27/25 20:25 RRP No Response 03/27/25 20:53 RRP 03/27/25 20:25 Lab Assessment GBS Status negative Is Patient Allergic to Penicillin? No No Treatment Needed OK Are Labs Available Yes Maternal Blood Type O Maternal RH Factor Positive Evaluate Maternal Rubella Immune Status Immune Hepatitis B Surface Antigen Negative Maternal HIV Status Negative Maternal Syphillis (RPR) Status Negative PFSH PFS Medical History Lactating mother ?Z39.1 - Encounter for care and examination of lactating mother (ICD-10) Preeclampsia ?O14.90 - Unspecified pre-eclampsia, unspecified trimester (ICD-10) Surgical History History of tonsillectomy ?Z90.89 - Acquired absence of other organs (ICD-10) Family History Paternal Grandmother Cancer Maternal Grandfather Skin cancer Mother High blood pressure Father High blood pressure Aunt Diabetes FH: mental illness Depression Social History Narrative: SOCIAL Education: Masters 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 [employer] Partner: , Henrique Lives with: With Henrique and Daughter Agustina Pets: None Abuse: None Special Diet: None Ok with a blood transfusion: yes Culture or yazidi beliefs: Jewish RISK FACTORS Exercise Times/wk: 2-3X, 20-30 min running or weights, yoga. Depression/Anxiety: Depression, Feelings of crumbling and that she can't get out at times. Voices feeling of being trapped in motherhood. Happens once every 2 weeks and has been occurring for a few months. Wishes to start therapy. Declines medications at this time. Encouraged to reach out sooner if worsening. LUIS ARMANDO: 4 PHQ 9: 5 Seat Belt Use: Routinely Smoking: Alcohol/day: Denies while Caffeine: Some days Drug Use: Denies Chicken Pox: Yes as a child MRSA: Denies What is your current living situation?: I presently have a place to live Problems where you live: no known problems In the past 12 months, utilities in danger of being shut off: no In past 12 months, lack of transportation kept you from medical appts, meetings, work, or getting things needed for daily living: no In the past 12 mos, have been you worried that your food would run out before you had money to buy more?: never true In the past 12 mos, the food you bought just didn't last and you didn't have money to buy more?: never true Smoking Status: Never smoker How often does anyone, including family, friends and others, physically hurt you: never How often does anyone, including family, friends and others, insult or talk down to you: never How often does anyone, including family, friends and others, threaten you with harm: never How often does anyone, including family, friends and others, scream or curse at you: never Meds Home Medications and Allergies Home Medications ?Medication ?Instructions ?Recorded ?Confirmed ?Type docosahexaenoic acid 200 mg 200 mg PO DAILY 06/01/23 03/27/25 History capsule ( DHA) breast pump #1 ea 10/14/23 03/27/25 Rx acetaminophen 500 mg oral powder 500 mg PO Q6H PRN 08/23/24 03/27/25 History packet (Tylenol Extra Strength) aspirin 81 mg tablet,delayed 81 mg PO QDAY 11/20/24 03/27/25 History release calcium carbonate (Tums) 200 mg PO BID 02/12/25 03/27/25 History famotidine 20 mg tablet (Pepcid) 20 mg PO QDAY 03/05/25 03/27/25 History Allergies Allergy/AdvReac Type Severity Reaction Status Date / Time cat dander Allergy Intermediate Watery Eye Verified 03/27/25 09:33 dog dander Allergy Intermediate Watery Eye Verified 03/27/25 09:33 molds/dust Allergy Mild sneezing, Uncoded 03/27/25 09:33 runny nose OB - H&P: Exam Physical Exam: Vital signs: Temp Pulse Resp BP Pulse Ox 99 F 73 16 102/55 L 98 03/27/25 22:26 03/28/25 01:04 03/27/25 19:29 03/28/25 01:04 03/28/25 00:47 OB - Results Labs Labs: Short CBC 03/27/25 03/28/25 Range/Units 20:40 00:19 WBC 16.29 H 18.72 H (4.50-11.00) K/uL Hgb 14.0 12.0 (12.0-16.0) gm/dL Hct 40.9 35.1 (33.0-51.0) % Plt Count 164 168 (140-440) K/uL OB - CN: A/P Assessment and Plan (1) Supervision of other normal : Status: Acute (2) Short interval between pregnancies complicating , antepartum: Status: Acute (3) History of pre-eclampsia in prior , currently : Status: Acute
[2025-03-28] MEDS: LACTATED RINGERS 500 ML 500 ML IV (02:05)
[2025-03-28] MEDS: ACETAMINOPHEN 500 MG TABLET 1000 MG PO ×2 (06:02→13:12)
[2025-03-28 06:18] LABS: Hematocrit 31.7 % (33.0-51.0); Hemoglobin* 10.8 gm/dL (12.0-16.0); Immature Granulocytes Pct Auto 0.2 %; Mean Corpuscular HGB Conc 34 gm/dL (32-36); Mean Corpuscular Hemoglobin 31 pg (26-34); Mean Corpuscular Volume 91 fL (80-100); RDW Coefficient of Variation % 12.0 % (11.5-15.5); Red Blood Count 3.50 m/uL (4.00-5.20); White Blood Count* 20.32 K/uL (4.50-11.00)
[2025-03-28 06:19] LABS: Immature Granulocytes Abs Auto 0.00 K/uL (0.00-0.30); Lymphocytes Absolute Auto 1.80 K/uL (0.90-2.90); Slide Review Reflex No
--- NOTE | 2025-03-28 08:55 | PM.OBPNVD1 ---
OB - PN:Subj Subjective Date Seen: 03/28/25 Patient comments OB post-: no complaints, pain well controlled, tolerating diet and flatus present [place] status: and doing well [place] feeding status: exclusively Narrative: Farhana feels well.? Her pain is well controlled with current medications.? She has no new complaints.? Urinary output is adequate and she is voiding without difficulty.? Has a good appetite, is tolerating a general diet, is passing flatus, and has not had a bowel movement.? Has scant amount of rubra lochia.?It has been minimal since the packing was removed earlier this morning. She feels sore from the delivery and repair. She is ambulating well.? is going much beter for her so far than with her last baby. OB - PN: Obj Exam Physical Exam: Vital signs: Temp Pulse Resp BP Pulse Ox O2 Del Method 98 F 65 16 112/73 97 Room Air 03/28/25 07:03 03/28/25 08:20 03/28/25 08:20 03/28/25 08:20 03/28/25 08:20 03/28/25 08:20 Narrative: GENERAL APPEARANCE:? normal affect, alert, no distress? MOOD:? appropriate? CHEST:? clear to auscultation and percussion? HEART:? regular rate and rhythm? BREASTS: soft, nontender, no erythema, nipples intact? ABDOMEN:? soft, non-tender the uterine fundus is U/1 and is appropriate for the stage of recovery.? PERINEUM:? mild edema of the perineum, there is a 2nd degree laceration and cervical laceration that is healing well.?Vaginal packing was removed earlier this morning. EXTREMITIES:? normal and no edema? OB - PN: Obj Data Labs Labs: Laboratory Results - last 24 hr 03/27/25 03/28/25 03/28/25 20:40 00:19 06:03 WBC 16.29 H 18.72 H 20.32 H RBC 4.54 3.87 L 3.50 L Hgb 14.0 12.0 10.8 L Hct 40.9 35.1 31.7 L MCV 90 91 91 MCH 31 31 31 MCHC 34 34 34 RDW Coeff of Den 12.0 12.0 12.0 Plt Count 164 168 155 Neut % (Auto) 75.6 H 85.1 H 85.4 H Lymph % (Auto) 16.6 L 8.8 L 9.0 L [place] % (Auto) 6.1 5.4 5.1 Eos % (Auto) 1.2 0.2 0.3 Baso % (Auto) 0.1 0.2 0.0 Neut # (Auto) 12.30 H 15.90 H 17.40 H Lymph # (Auto) 2.70 1.60 1.80 [place] # (Auto) 1.00 H 1.00 H 1.00 H Eos # (Auto) 0.20 0.00 0.10 Baso # (Auto) 0.00 0.00 0.00 Abs Immat Gran (auto) 0.10 0.10 0.00 Imm/Tot Granulo (auto) 0.4 0.3 0.2 INR 0.92 APTT 25 Fibrinogen 380 Blood Type O Positive Antibody Screen NEGATIVE Crossmatch (AHG) See Detail OB - PN: A/P Delivery Assessment and Plan (1) History of pre-eclampsia in prior , currently : Status: Acute (2) depression: Status: Acute (3) care following vaginal delivery: Status: Acute (4) Cervical laceration: Status: Acute (5) Lactating mother: Status: Acute Plan day: 1 Plan: routine care Comments: Anticipate discharge home tomorrow.
--- NOTE | 2025-03-28 10:20 | PM.ANPOST ---
Post Anesthesia Note Post Anesthesia Note Patient seen: Inpatient Respiratory Status: adequate Cardiovascular Status: adequate Mental Status: baseline Pain: adequate Temp: baseline Anesthetic awareness: N/A Complications: none Follow care: none
[2025-03-28] MEDS: DOCUSATE SODIUM 100 MG CAPSULE PO (10:43)
[2025-03-28] MEDS: IBUPROFEN 600 MG TABLET PO (17:04)
[2025-03-29 02:59] VITALS: BP 104/67; PULSE 86; RESP 16; TEMP 36.3; O2SAT 98
[2025-03-29 04:14] LABS: Hemoglobin* 9.3 gm/dL (12.0-16.0)
[2025-03-29] MEDS: ACETAMINOPHEN 500 MG TABLET 1000 MG PO (04:44)
[2025-03-29 05:12] VITALS: BP 107/70; PULSE 63; RESP 16; TEMP 36.6; O2SAT 96
[2025-03-29 09:14] VITALS: BP 117/77; PULSE 70; RESP 16; O2SAT 97
[2025-03-29] MEDS: LANOLIN CREAM 1 APPLIC TOPICAL (09:22)
[2025-03-29] MEDS: DOCUSATE SODIUM 100 MG CAPSULE PO (09:22)
--- NOTE | 2025-03-29 09:25 | PM.OBDSVD1 ---
DS: Providers Provider Date Seen: 03/29/25 Date of admission: 03/27/25 20:23 Primary care physician: Not a Local Provider Admitting Clinician: Areli Zhong CNM Attending Physician on discharge: Areli Zhong CNM Exam Const: Vital Signs, click to edit/add: Vital Signs - 24 hr 03/28/25 10:32 03/28/25 12:11 03/28/25 14:00 Temperature 97.3 F L 97.4 F L Pulse Rate [Pulse Oximeter] 76 70 76 Respiratory Rate 16 16 16 Blood Pressure [Le ft Arm] 120/78 119/77 112/75 Pulse Oximetry 98 99 97 Oxygen Delivery Me thod Room Air Room Air Room Air 03/28/25 16:45 03/28/25 21:06 03/29/25 02:59 Temperature 97.9 F 97.3 F L 97.3 F L Pulse Rate [Pulse Oximeter] 89 71 86 Respiratory Rate 16 16 16 Blood Pressure [Le ft Arm] 107/73 104/67 104/67 Pulse Oximetry 97 98 98 Oxygen Delivery Me thod Room Air Room Air Room Air 03/29/25 05:12 03/29/25 09:14 Temperature 98 F Pulse Rate [Pulse Oximeter] 63 70 Respiratory Rate 16 16 Blood Pressure [Le ft Arm] 107/70 117/77 Pulse Oximetry 96 97 Oxygen Delivery Me thod Room Air Room Air OB - DS: Summary Hospital Course Hospital Course: The patient is a 34 year old G [] P [] at [] weeks gestation that was admitted to the Center on 03/27/25 for []. She had an [uncomplicated/complicated] [vaginal/] delivery. She delivered a viable [male/female] . She is [breast/bottle] feeding. the patient has done well. Peripartum Data Procedures: Procedures Operation Date: 03/28/25 01:00 <No data on this case meets the specified criteria> [place] Gender: Female Time Spent with Patient Time attestation: Total time spent providing and/or coordinating discharge services: Discharge Plan Discharge Disposition: Home, Self-Care Date of Admission: 03/27/25 20:23 Attending Provider on Discharge: Katie Larson Primary Care Provider: Provider,Not a Local Condition: Stable Anticipated Discharge Date/Time: 03/29/25 11:30 Discharge Medications: New docusate sodium 100 mg Capsule 100 mg PO BID PRNQty: 60 0RF ferric citrate 210 mg iron tablet 210 mg PO .qod Qty: 60 0RF Rx Instructions: administer with a meal and vitamin C Continued calcium carbonate [Tums] 200 mg calcium (500 mg) tablet,chewable 200 mg PO BID DHA 200 mg capsule 200 mg PO DAILY Tylenol Extra Strength 500 mg powder in packet 500 mg PO Q6H PRN famotidine [Pepcid] 20 mg tablet 20 mg PO QDAY (DME) breast pump Device See Rx Instructions .Route Qty: 1 0RF Rx Instructions: As directed Discontinued aspirin 81 mg tablet,delayed release (DR/EC) 81 mg PO QDAY Discharge Orders: Discharge Order (Routine); Ordered 03/29/25 Ordered By: Katie Larson Patient Education: OB Over the Counter Medication Information, OB Vaginal/Breast Feeding Additional Instructions: [facility] 2 [facility] and 6 weeks. Nothing in the vagina for 6 weeks- no tampons or intercourse. Activity Level: Activity as Tolerated Discharge Diet: Regular Follow Up Appointments: Provider,Not a Local [Primary Care Provider, Family Practice] Forms: [facility] Bel[facility], [facility] Discharge Comments: Discharge instructions reviewed with patient. All questions answered. Pt verbalized understanding.
--- NOTE | 2025-03-29 09:29 | PM.OBDSVD1 ---
DS: Providers Provider Time Seen by Provider: 08:00 Date Seen: 03/29/25 Date of admission: 03/27/25 20:23 Primary care physician: Not a Local Provider Admitting Clinician: Areli Zhong CNM Attending Physician on discharge: Katie Larson CNM Date of Discharge: 03/29/25 DS: Diagnosis Discharge Diagnosis (1) Lactating mother: Status: Acute (2) Cervical laceration: Status: Acute (3) Anemia, : Status: Acute Problem details: Discussed iron rich foods, taking iron supplements. (4) Cracked nipple associated with : Status: Acute Problem details: Discussed importance of deep latch, will see obiee consultant prior to d/c for hydrogel pads and lanolin ointment. Exam Narrative: Exam Narrative: GENERAL APPEARANCE:? normal affect, alert, no distress? MOOD:? appropriate? CHEST:? clear to auscultation and percussion? HEART:? regular rate and rhythm? BREASTS: soft, nontender, no erythema, nipples cracked bilaterally? ABDOMEN:? soft, non-tender the uterine fundus is firm and is appropriate for the stage of recovery.? PERINEUM:? mild edema of the perineum, healing well.? EXTREMITIES:? normal and no edema? Const: Vital Signs, click to edit/add: Vital Signs - 24 hr 03/28/25 10:32 03/28/25 12:11 03/28/25 14:00 Temperature 97.3 F L 97.4 F L Pulse Rate [Pulse Oximeter] 76 70 76 Respiratory Rate 16 16 16 Blood Pressure [Le ft Arm] 120/78 119/77 112/75 Pulse Oximetry 98 99 97 Oxygen Delivery Me thod Room Air Room Air Room Air 03/28/25 16:45 03/28/25 21:06 03/29/25 02:59 Temperature 97.9 F 97.3 F L 97.3 F L Pulse Rate [Pulse Oximeter] 89 71 86 Respiratory Rate 16 16 16 Blood Pressure [Le ft Arm] 107/73 104/67 104/67 Pulse Oximetry 97 98 98 Oxygen Delivery Me thod Room Air Room Air Room Air 03/29/25 05:12 03/29/25 09:14 Temperature 98 F Pulse Rate [Pulse Oximeter] 63 70 Respiratory Rate 16 16 Blood Pressure [Le ft Arm] 107/70 117/77 Pulse Oximetry 96 97 Oxygen Delivery Me thod Room Air Room Air OB - DS: Summary Hospital Course Hospital Course: The patient is a 34 year old G 2 P 2 at 40+2 weeks gestation that was admitted to the Center on 03/27/25 for spontaneous labor. She had an uncomplicated vaginal delivery with a PPH due to a cervical laceration. She delivered a viable female infant. She is breast feeding. the patient has done well. Farhana feels well.? Her pain is well controlled with current medications.? She has no new complaints.? Urinary output is adequate and she is voiding without difficulty.? Has a good appetite, is tolerating a general diet, is passing flatus, and has not had a bowel movement.? Has scant amount of rubra lochia.? She is ambulating well.?Plans NFP for PP contraception; we discussed cycles can be irregular during and she may ovulate prior to having a period, need to be alert for changes in cervical mucus, and consider condoms as a backup. Peripartum Data delivery method: Vaginal Laceration description: Cervical - 1st Degree (Cervical laceration only) Procedures: Procedures Operation Date: 03/28/25 01:00 <No data on this case meets the specified criteria> [place] Infant Gender: Female Discharge Plan: Home Status at Discharge Functional status at discharge: independent ambulation Overall status at discharge: patient is progressing back to baseline Time Spent with Patient Time attestation: Total time spent providing and/or coordinating discharge services: Time spent: Less than 30 minutes Discharge Plan Discharge Disposition: Home, Self-Care Date of Admission: 03/27/25 20:23 Attending Provider on Discharge: Katie Larson Primary Care Provider: Provider,Not a Local Condition: Stable Anticipated Discharge Date/Time: 03/29/25 11:30 Discharge Medications: New docusate sodium 100 mg Capsule 100 mg PO BID PRNQty: 60 0RF ferric citrate 210 mg iron tablet 210 mg PO .qod Qty: 60 0RF Rx Instructions: administer with a meal and vitamin C Continued calcium carbonate [Tums] 200 mg calcium (500 mg) tablet,chewable 200 mg PO BID DHA 200 mg capsule 200 mg PO DAILY Tylenol Extra Strength 500 mg powder in packet 500 mg PO Q6H PRN famotidine [Pepcid] 20 mg tablet 20 mg PO QDAY (DME) breast pump Device See Rx Instructions .Route Qty: 1 0RF Rx Instructions: As directed Discontinued aspirin 81 mg tablet,delayed release (DR/EC) 81 mg PO QDAY Discharge Orders: Discharge Order (Routine); Ordered 03/29/25 Ordered By: Katie Larson Patient Education: OB Over the Counter Medication Information, OB Vaginal/Breast Feeding Additional Instructions: [facility] 2 weeks and 6 weeks. Nothing in the vagina for 6 weeks- no tampons or intercourse. Activity Level: Activity as Tolerated Discharge Diet: Regular Follow Up Appointments: Provider,Not a Local [Primary Care Provider, Family Practice] Forms: Patient Belongings, [facility] Info Instructions Discharge Comments: Discharge instructions reviewed with patient. All questions answered. Pt verbalized understanding.
== END 2025-03-29 13:20 | disposition home or self-care (01) | DRG 542 ==
LOC: OB OUT 20:23 → OB 20:23
PROVIDERS: Obstetrics & Gynecology; Admitting Provider Midwife; Visit Provider Midwife
DX: O99.344 Other mental disorders complicating childbirth (principal); F32.A Depression, unspecified; O72.1 Other immediate postpartum hemorrhage; O71.3 Obstetric laceration of cervix; O70.1 Second degree perineal laceration during delivery; F53.0 Postpartum depression; O92.12 Cracked nipple associated with the puerperium; O90.81 Anemia of the puerperium; D64.9 Anemia, unspecified; Z37.0 Single live birth; Z34.80 Encounter for supervision of other normal pregnancy, unspecified trimester
CPT/HCPCS: 01967; 36415; 85018; 85025; 85384; 85610; 85730; 86592; 86850; 86900; 86901; 86922; 87081; 87653; 88307; 94761; A9270; J2210; J2795; J7120

== ENCOUNTER 2025-04-10 15:42 | Outpatient (CLI) | payer BC, SELFPAY | END 2025-04-10 15:43 | disposition home or self-care (01) | LOC: FRMREF 15:43 | PROVIDERS: Visit Provider Midwife | DX: R39.15 Urgency of urination (principal) | CPT/HCPCS: 87086 ==

== ENCOUNTER 2025-05-08 16:04 | Outpatient (CLI) | payer BC, SELFPAY | END 2025-05-08 16:05 | disposition home or self-care (01) | LOC: NFLDREF 16:05 | PROVIDERS: Visit Provider Midwife | DX: O99.345 Other mental disorders complicating the puerperium (principal); F41.8 Other specified anxiety disorders; Z39.2 Encounter for routine postpartum follow-up | CPT/HCPCS: 84443 ==